=== PATIENT | female | born 1975 | race Caucasian/White ===

== ENCOUNTER 2022-07-31 12:17 | Emergency (ER) | payer OTHER ==
[~2022-07-31] VITALS: Ht 182.9 cm; Wt 59.6 kg
[2022-07-31] MEDS ORDERED: VENTOLIN HFA18 GM INH (14:00)
[2022-07-31] MEDS ORDERED: LISINOPRIL40 MG PO (14:00)
[2022-07-31] MEDS ORDERED: ONDANSETRON ODT8 MG PO (16:46)
== END 2022-07-31 16:56 | disposition home or self-care (01) ==
LOC: ED 12:17
DX: K52.9 Noninfective gastroenteritis and colitis, unspecified (principal); I10 Essential (primary) hypertension; J45.909 Unspecified asthma, uncomplicated; Z79.899 Other long term (current) drug therapy
CPT/HCPCS: 36415; 80053; 81001; 83735; 84703; 85025; 85060; 96361; 96374; 99284-25; J2405; J7030

== ENCOUNTER 2024-04-12 10:49 | Emergency (ER) | payer OTHER ==
[~2024-04-12] VITALS: Ht 182.9 cm; Wt 60.9 kg
[~2024-04-12 10:49] MED LIST: LISINOPRIL40 MG PO; ONDANSETRON ODT8 MG PO; VENTOLIN HFA18 GM INH
[2024-04-12] MEDS ORDERED: ACETAMINOPHEN 325 MG TAB PO ONE (11:15)
[2024-04-12] MEDS ORDERED: LIDOCAINE HCL 4% 1 EACH PATCH TD ONE (11:15)
[2024-04-12] MEDS ORDERED: KETOROLAC TROMETHAMINE 15 MG/ML VIAL IM ONE (11:15)
[2024-04-12] MEDS ORDERED: METHYLPREDNISOLO4 M1 PO (12:47)
[2024-04-12] MEDS ORDERED: SENNA-DOCUSATE1 EAC1 PO (12:47)
[2024-04-12] MEDS ORDERED: PERCOCET 5-3251 EACH PO (12:47)
[2024-04-12 12:59] VITALS: BP 124/87
[2024-04-12] MEDS ORDERED: LIDOCAINE PATCH REMOVAL 1 EA TD SCH (21:00)
== END 2024-04-12 12:59 | disposition home or self-care (01) ==
LOC: ED 10:49
DX: M54.50 Low back pain, unspecified (principal); X50.0XXA Overexertion from strenuous movement or load, initial encounter; I10 Essential (primary) hypertension; F17.200 Nicotine dependence, unspecified, uncomplicated; Z88.8 Allergy status to other drugs, medicaments and biological substances; Z79.899 Other long term (current) drug therapy
CPT/HCPCS: 72170; 96372; 99283-25; A9270; J1885

== ENCOUNTER 2025-09-24 11:35 | Emergency (ER) | payer OTHER ==
[~2025-09-24] VITALS: Ht 182.9 cm; Wt 69.0 kg
[~2025-09-24 11:35] MED LIST changes: +METHYLPREDNISOLO4 M1 PO; +PERCOCET 5-3251 EACH PO; +SENNA-DOCUSATE1 EAC1 PO
[2025-09-24] MEDS ORDERED: CYCLOBENZAPRINE10 MG PO (13:57)
[2025-09-24] MEDS ORDERED: LIDOCAINE HCL 4% 1 EACH PATCH TD ONE (14:00)
[2025-09-24 14:11] VITALS: BP 135/52
[2025-09-24] MEDS ORDERED: LIDOCAINE PATCH REMOVAL 1 EA TD SCH (21:00)
== END 2025-09-24 14:13 | disposition home or self-care (01) ==
LOC: ED 11:35
DX: M54.50 Low back pain, unspecified (principal); G89.29 Other chronic pain; J45.909 Unspecified asthma, uncomplicated; I10 Essential (primary) hypertension; Z79.899 Other long term (current) drug therapy
CPT/HCPCS: 99283; A9270